=== PATIENT | female | born 1970 | race Caucasian/White ===

== ENCOUNTER 2020-02-01 16:35 | Outpatient (CLI) | payer OTHER, SELFPAY ==
--- NOTE | ~2020-02-01 | XR_ITS ---
XR shoulder RT min 2V 02/01/2020 17:10 INDICATION: Right shoulder pain PROCEDURE: 4 views right shoulder COMPARISON: No prior studies for comparison. FINDINGS: Fracture, dislocation or subluxation is not identified. The soft tissues appear within norm al limits. No foreign bodies are identified. IMPRESSION: 1: NO ACUTE BONE OR JOINT ABNORMALITY IDENTIFIED. Reviewed, dictated and finalized at location A.
--- NOTE | ~2020-02-01 | XR_ITS ---
EXAMINATION: XR hip RT min 2V DATE: 02/01/2020 17:11 INDICATION: Nontraumatic right hip pain TECHNIQUE: Anteroposterior , frog leg and cross-table lateral views of the right hip were obtained. COMPARISON: None. FINDINGS: Alignment is normal. No fracture or suspected avascular necrosis. Right hip and sacroiliac joint spac es are normal. Soft tissues are unremarkable. IMPRESSION: 1. Negative right hip radiographs. Reviewed, dictated and finalized at location A.
== END 2020-02-01 16:36 | disposition home or self-care (01) ==
PROVIDERS: PCP Physician Assistant; Visit Provider Physician Assistant
DX: M25.551 Pain in right hip (principal)
CPT/HCPCS: 73030; 73502

== ENCOUNTER 2020-05-09 16:22 | Outpatient (CLI) | payer OTHER, SELFPAY ==
--- NOTE | ~2020-05-09 | MM_ITS ---
EXAMINATION: MM screening nathan BI w que HISTORY: Screening mammogram TECHNIQUE: Craniocaudal and mediolateral oblique 3-D tomosynthesis images were obtained and synthetic 2-D images were generated. CAD analysis was submitted and interpreted. COMPARISON: 11/25/2018, 11/23/2017, 11/19/2016, 11/15/2015 bilateral digital screening mammogram examinati ons BREAST PARENCHYMAL COMPOSITION: There are scattered areas of fibroglandular density. FINDINGS: Stable mild fibroglandular asymmetry since 11/15/2015. There is no evidence of suspicious mas s, calcification, or architectural distortion to suggest malignancy in either breast. There has been no suspicious interval change. IMPRESSION: 1. No mammographic evidence of malignancy. 2. Recommend routine screening mammography in one year. BI-RADS Category 1: Negative Reviewed, dictated and finalized at location A. TTER HAND
== END 2020-05-09 16:23 | disposition home or self-care (01) ==
LOC: ANHIMG 16:26
PROVIDERS: PCP Physician Assistant; Visit Provider Student in an Organized Health Care Education/Training Program
DX: Z12.31 Encounter for screening mammogram for malignant neoplasm of breast (principal)
CPT/HCPCS: 77063; 77067

== ENCOUNTER 2020-11-29 11:25 | Outpatient (CLI) | payer OTHER, SELFPAY ==
--- NOTE | ~2020-11-29 | XR_ITS ---
EXAMINATION: XR tibia fibula LT 2V INDICATION: Left leg pain TECHNIQUE: Two views of the left tibia and fibula are obtained on three radiographs. COMPARISON: None available FINDINGS: There is no fracture, dislocation, or subluxation. The bones, soft tissues, and joint space s are normal. IMPRESSION: 1. No acute osseous abnormality. Reviewed, dictated and finalized at location A.
== END 2020-11-29 11:26 | disposition home or self-care (01) ==
LOC: ANHIMG 11:28
PROVIDERS: PCP Physician Assistant; Visit Provider Physician Assistant
DX: S89.92XA Unspecified injury of left lower leg, initial encounter (principal); X58.XXXA Exposure to other specified factors, initial encounter
CPT/HCPCS: 73590

== ENCOUNTER 2021-01-15 07:40 | Outpatient (CLI) | payer OTHER, SELFPAY ==
--- NOTE | ~2021-01-15 | US_ITS ---
US right upper quadrant DATE: 01/15/2021 08:06 INDICATION: Elevated liver function tests TECHNIQUE: Real-time and color flow imaging and Doppler analysis COMPARISON: 06/06/2017 complete abdominal ultrasound examination, reported normal FINDINGS: The pancreatic tail is obscured and not evaluated. The pancreas appears unremarkable. No hepatic space-occupying mass lesion is evident. Normal hepatopedal portal venous flow direction. No gallstones or gallbladder wall thickening or pericholecystic abnormal fluid collection. The common bile duct measures 3.9 mm, normal. IMPRESSION: Pancreatic tail is obscured; otherwise unremarkable examination Reviewed, dictated and finalized at Location A. Reviewed, dictated and finalized at location A.
== END 2021-01-15 07:41 | disposition home or self-care (01) ==
PROVIDERS: PCP Physician Assistant; Visit Provider Internal Medicine
DX: R79.89 Other specified abnormal findings of blood chemistry (principal)
CPT/HCPCS: 76705

== ENCOUNTER 2021-05-30 01:32 | Day surgery (SDC) | payer OTHER, SELFPAY ==
[2021-05-21 15:39] VITALS: BMI 26.2
--- NOTE | 2021-05-29 16:51 | PM.HPGS ---
History of Present Illness History of Present Illness Consent: Risks, benefits, and alternatives have been discussed and questions answered. Patient agrees to proceed with procedure. Chief complaint: neoplasm screening Narrative: Charmaine Deal is a 51 year old female Referred for colon cancer screening. Review of Systems Review of Systems: All systems reviewed & are unremarkable except as noted in HPI and below PMFSH Past Medical History Medical History Acid reflux Anemia Arthritis Asthma Autoimmune disease Diabetes Genital herpes simplex High cholesterol IBS (irritable bowel syndrome) Neuroma Left foot, removed Plantar fasciitis, bilateral Plantar fascia release, bilateral Psoriatic arthritis Thyroid disease Surgical History Surgical History deliv NOS-unsp x3 H/O abdominoplasty H/O foot surgery H/O laparoscopy H/O: hysterectomy History of ankle surgery History of hip surgery S/P bilateral oophorectomy [place] teeth removed Family History Family History Sibling Hypertension Cerebrovascular accident Grandparent Hypertension Cerebrovascular accident Family history of coronary artery disease Diabetes mellitus Father Family history of diabetes mellitus in first degree relative Diabetes mellitus Other Family history of malignant neoplasm of breast in first degree relative Social History Social History Smoking status: Never smoker Second hand tobacco smoke exposure: No Alcohol intake: current Alcohol use details: socially Living arrangements: with family Spiritual care concerns: No Meds Home Medications and Allergies Home Medications Medication Instructions Recorded Confirmed Type atorvastatin 40 mg tablet 40 mg PO DAILY 05/11/19 05/30/21 History ezetimibe 10 mg tablet 10 mg PO DAILY 05/11/19 05/30/21 History levothyroxine 88 mcg tablet 88 mcg PO DAILY 05/11/19 05/30/21 History metformin 500 mg tablet 1,000 mg PO BID 05/11/19 05/30/21 History multivitamin 1 tablet PO DAILY 05/11/19 05/30/21 History dulaglutide [Trulicity] 1.5 mg SUBCUT WEEKLY 06/02/19 05/30/21 History albuterol sulfate 90 mcg/actuation 1 inhalation INHALATION Q4H PRN 10/28/19 05/30/21 Rx aerosol inhaler #8.5 gm celecoxib 200 mg capsule 200 mg PO DAILY 12/18/20 05/30/21 History gabapentin 100 mg capsule 100 mg PO DAILY 12/18/20 05/30/21 History pioglitazone 15 mg tablet 15 mg PO DAILY 12/18/20 05/30/21 History diltiazem HCl 30 mg PO DAILY 05/21/21 05/30/21 History golimumab [Simponi ARIA] 100 mg IV ONCE 05/21/21 05/30/21 History valacyclovir 500 mg PO Q12H PRN 05/21/21 05/30/21 History Allergies Allergy/AdvReac Type Severity Reaction Status Date / Time gluten Allergy Unknown GI UPSET, Verified 05/30/21 06:20 HIVES adhesive Allergy rash Verified 05/30/21 06:20 bacitracin Allergy Rash Verified 05/30/21 06:20 latex Allergy Rash Verified 05/30/21 06:20 Exam Const: General: alert Orientation/consciousness: patient oriented x3 Resp: Auscultation: clear to auscultation bilaterally Cardio: Rhythm: regular rhythm GI: GI Palp: Yes Soft to palpation and No Tenderness to palpation present (GI) Neuro: General: patient oriented x3 Assessment and Plan Assessment and plan (1) Colon cancer screening: Code(s): Z12.11 - Encounter for screening for malignant neoplasm of colon Status: Acute Assessment and Plan: Colonoscopy with possible biopsy or polypectomy or cautery or injection of substances.
[2021-05-30 06:21] VITALS: BP 132/84; PULSE 102; RESP 18; TEMP 36.6; O2SAT 95; BMI 24.5
[2021-05-30] MEDS: LACTATED RINGERS 1,000 ML 150 ML IV CONT (06:25)
[2021-05-30 06:35] LABS: Glucose Point of Care 176 mg/dl (65-105)
--- NOTE | 2021-05-30 06:53 | WPDANESEPPF ---
Anes - Initial Pre Proc Eval Procedure: Operation Date: 05/30/21 07:30 Proposed Procedures p Screening Colonoscopy - Melvin Juarez MD Date/Time: 05/30/21 06:53 Surgeon: Melvin Juarez MD Pre Op Diagnosis: neoplasm screening Patient Data Age: 51 Gender: F Height: 1.6 m Weight: 62.8 kg Last Vital Signs Temp 36.6 C 05/30/21 06:21 Pulse 102 H 05/30/21 06:21 Resp 18 05/30/21 06:21 BP 132/84 05/30/21 06:21 Pulse Ox 95 05/30/21 06:21 Allergies Allergy/AdvReac Type Severity Reaction Status Date / Time gluten Allergy Unknown GI UPSET, Verified 05/30/21 06:20 HIVES adhesive Allergy rash Verified 05/30/21 06:20 bacitracin Allergy Rash Verified 05/30/21 06:20 latex Allergy Rash Verified 05/30/21 06:20 Home Medications Medication Instructions Recorded Confirmed Type atorvastatin 40 mg tablet 40 mg PO DAILY 05/11/19 05/30/21 History ezetimibe 10 mg tablet 10 mg PO DAILY 05/11/19 05/30/21 History levothyroxine 88 mcg tablet 88 mcg PO DAILY 05/11/19 05/30/21 History metformin 500 mg tablet 1,000 mg PO BID 05/11/19 05/30/21 History multivitamin 1 tablet PO DAILY 05/11/19 05/30/21 History dulaglutide [Trulicity] 1.5 mg SUBCUT WEEKLY 06/02/19 05/30/21 History albuterol sulfate 90 mcg/actuation 1 inhalation INHALATION Q4H PRN 10/28/19 05/30/21 Rx aerosol inhaler #8.5 gm celecoxib 200 mg capsule 200 mg PO DAILY 12/18/20 05/30/21 History gabapentin 100 mg capsule 100 mg PO DAILY 12/18/20 05/30/21 History pioglitazone 15 mg tablet 15 mg PO DAILY 12/18/20 05/30/21 History diltiazem HCl 30 mg PO DAILY 05/21/21 05/30/21 History golimumab [Simponi ARIA] 100 mg IV ONCE 05/21/21 05/30/21 History valacyclovir 500 mg PO Q12H PRN 05/21/21 05/30/21 History Laboratory Tests 05/30/21 06:33 POC Capillary Glucose 176 mg/dl H mg/dl (65-105) Patient hx anesthesia problems: none Family hx anesthesia problems: none Results Review: All pre-operative results and documents have been reviewed as part of the pre-operative evaluation. [facility] Past Medical History Medical History Acid reflux Anemia Arthritis Asthma Autoimmune disease Diabetes Genital herpes simplex High cholesterol IBS (irritable bowel syndrome) Neuroma Left foot, removed Plantar fasciitis, bilateral Plantar fascia release, bilateral Psoriatic arthritis Thyroid disease Surgical History Surgical History deliv NOS-unsp x3 H/O abdominoplasty H/O foot surgery H/O laparoscopy H/O: hysterectomy History of ankle surgery History of hip surgery S/P bilateral oophorectomy [place] teeth removed Family History Family History Sibling Hypertension Cerebrovascular accident Grandparent Hypertension Cerebrovascular accident Family history of coronary artery disease Diabetes mellitus Father Family history of diabetes mellitus in first degree relative Diabetes mellitus Other Family history of malignant neoplasm of breast in first degree relative Social History Social History Smoking status: Never smoker Second hand tobacco smoke exposure: No Alcohol intake: current Alcohol use details: socially Living arrangements: with family Spiritual care concerns: No Anes - Eval Final PreProcedure Day of Procedure 05/30/21 06:53 Patient weight: normal Heart: regular rate and rhythm Lungs: clear to auscultation Airway: Mallampati scale class 1 Neurological: alert and oriented Last oral intake: >/= 8 hours ASA classification: III Emergent: no Anesthetic plan: proceed Anesthesia type and monitoring: general GIVS and standard monitoring Results Review: All pre-operative results and documents have been reviewed as part of the pre-operative evaluation. Informed Consent: The patie
[2021-05-30 07:47] VITALS: BP 100/58; PULSE 84; RESP 19; O2SAT 96
[2021-05-30 07:57] VITALS: BP 128/73; PULSE 81; RESP 17; O2SAT 100
[2021-05-30 08:07] VITALS: BP 105/74; PULSE 83; RESP 24; O2SAT 100
== END 2021-05-30 08:27 | disposition home or self-care (01) ==
PROVIDERS: PCP Physician Assistant; Visit Provider Internal Medicine Gastroenterology
PROC: 0DJD8ZZ Inspection of Lower Intestinal Tract, Via Natural or Artificial Opening Endoscopic (ICD-10-PCS; CPT 45378; principal; 2021-05-30 07:30)
DX: Z12.11 Encounter for screening for malignant neoplasm of colon (principal); K21.9 Gastro-esophageal reflux disease without esophagitis; K58.9 Irritable bowel syndrome, unspecified; J45.909 Unspecified asthma, uncomplicated; E11.9 Type 2 diabetes mellitus without complications; E78.00 Pure hypercholesterolemia, unspecified; L40.50 Arthropathic psoriasis, unspecified
CPT/HCPCS: 45378; 82948; J2001; J2704; J7120

== ENCOUNTER 2021-10-16 15:30 | Outpatient (CLI) | payer OTHER, SELFPAY ==
--- NOTE | ~2021-10-16 | MM_ITS ---
EXAMINATION: MM screening nathan BI w que HISTORY: Screening TECHNIQUE: Craniocaudal and mediolateral oblique 3-D tomosynthesis images were obtained and synthetic 2-D images were generated. CAD analysis was submitted and interpreted. COMPARISON: Comparison to multiple prior studies sequentially, with oldest reviewed study dated 08/25. BREAST PARENCHYMAL COMPOSITION: There are scattered areas of fibroglandular density. FINDINGS: There is no evidence of suspicious mass, calcification, or architectural distortion to sugg est malignancy in either breast. There has been no suspicious interval change. IMPRESSION: 1. No mammographic evidence of malignancy. 2. Recommend routine screening mammography in one year. BI-RADS Category 1: Negative Reviewed, dictated and finalized at location A.
== END 2021-10-16 15:31 | disposition home or self-care (01) ==
LOC: ANHIMG 15:31
PROVIDERS: PCP Physician Assistant; Visit Provider Student in an Organized Health Care Education/Training Program
DX: Z12.31 Encounter for screening mammogram for malignant neoplasm of breast (principal)
CPT/HCPCS: 77063; 77067

== ENCOUNTER → 2022-11-13 08:08 | Outpatient (CLI) | payer BC, SELFPAY ==
--- NOTE | ~2022-11-13 | MR_ITS ---
MRI of the cervical spine Clinical History: Chronic neck pain Technique: Axial T2-weighted and gradient images, and sagittal T1-weighted, T2-weighted, and STIR liam ges were acquired. Findings: There is no fracture or subluxation of the cervical spine. Vertebral bodies maintain normal height and alignment. No bone marrow signal abnormality seen. At C2-C3, there is no disc bulge or herniation. No spinal canal stenosis, cord compression, or neural foraminal narrowing. At C3-C4, there is no disc bulge or herniation. No spinal canal stenosis, cord compression, or neural foraminal narrowing. At C4-C5, there is minimal disc bulge. No spinal canal stenosis, cord compression, or neural foramina l narrowing. At C5-C6, there is mild disc bulge. No spinal canal stenosis, cord compression, or neural foraminal n arrowing. At C6-C7, there is no disc bulge or herniation. No spinal canal stenosis, cord compression, or neural foraminal narrowing. No abnormal signal seen in the spinal cord. Paravertebral soft tissues are unremarkable. Impression: Minimal degenerative change, as above. Reviewed, dictated and finalized at location M. Impression: Minimal degenerative change, as above.
== END ==
PROVIDERS: PCP Physician Assistant; Visit Provider Internal Medicine
DX: G47.01 Insomnia due to medical condition (principal); L40.59 Other psoriatic arthropathy; M77.9 Enthesopathy, unspecified; K21.9 Gastro-esophageal reflux disease without esophagitis
CPT/HCPCS: 72141

== ENCOUNTER 2022-12-02 09:23 | Outpatient (CLI) | payer BC, SELFPAY ==
--- NOTE | ~2022-12-02 | MM_ITS ---
EXAMINATION: MM screening [facility] BI w que HISTORY: Screening mammogram TECHNIQUE: Craniocaudal and mediolateral oblique 3-D tomosynthesis images were obtained and synthetic 2-D images were generated. CAD analysis was submitted and interpreted. COMPARISON: Serial screening mammogram examinations dating back to 11/25/2018 BREAST PARENCHYMAL COMPOSITION: There are scattered areas of fibroglandular density. FINDINGS: Occasional benign belly arterial calcifications. There is no evidence of suspicious mass, c alcification, or architectural distortion to suggest malignancy in either breast. There has been no s uspicious interval change. IMPRESSION: 1. No mammographic evidence of malignancy. 2. Recommend routine screening mammography in one year. BI-RADS Category 2: Benign finding(s). Reviewed, dictated and finalized at location A.
--- NOTE | ~2022-12-02 | DEXA_ITS ---
Bone Density Report Name: SCAR CHANDLER Age: 52 Sex: Female Ethnicity: White Date of : 1970 Indication: postmenopausal; screening for osteoporosis; prior fracture; hysterectomy; Referring Provider: TALNO POZO Study: Bone densitometry was performed. Exam Date: December 02, 2022 Accession number: [id number] Bone Density: Region BMD T-score Z-score Classification AP Spine(L1-L4) 0.813 -2.1 -1.2 Osteopenia Femoral Neck (Left) 0.667 -1.6 -0.7 Osteopenia Total Hip (Left) 0.816 -1.0 -0.5 Normal Femoral Neck (Right) 0.628 -2.0 -1.1 Osteopenia Total Hip (Right) 0.837 -0.9 -0.3 Normal Total Hip Mean 0.827 -1.0 -0.4 Normal World Health Organization criteria for BMD impression classify patients as: Normal (T-score at or above -1.0), Osteopenia (T-score between -1.0 and -2.5), or Osteoporosis (T-score at or below -2.5). 10-year Fracture Risk(1): Major Osteoporotic Fracture 12% Hip Fracture 1.5% Reported Risk Factors: [place] (), Neck BMD=0.628, BMI=25.9, previous fracture (1) FRAX(R) Version 3.08. Fracture probability calculated for an untreated patient. Fracture probability may be lower if the patient has received treatment. Clinical Information Provided by Patient: Has had a low trauma fracture Has the following medical conditions: Hysterectomy, psoratic arthritis Patient maximum height was 63 Menopause Age: 40 No regular weight bearing exercise Drinks caffeinated beverages Onset of menses at age 10 Number of children 3 Impression: The patient has low bone mass, based on the Total Spine T-score. The patient has an estimated ten-year risk of hip fracture of 1.5% and an estimated ten-year risk of major fracture of 12%, based on the WHO FRAX algorithm. The patient has risk factors, including: previous fracture. Discussion: BONE DENSITY IS LOW AT ONE OR MORE SKELETAL SITES. This patient's lowest T-score is low at one or more skeletal sites. It meets the World Health Organization's (WHO) criteria for ?low bone mass? (T-score between -1.0 and -2.5). The patient's 10-year risk of fracture as calculated by FRAX is less than the threshold where pharmacological therapy is recommended by the National Osteoporosis Foundation (NOF). However, all treatment decisions require clinical judgment and consideration of individual patient factors, including patient preferences, comorbidities, previous drug use, risk factors not captured in the FRAX model (e.g., frailty, falls, vitamin D deficiency, increased bone turnover, interval significant decline in bone density) and possible under or overestimation of fracture risk by FRAX. The patient should follow a healthful lifestyle (good nutrition with adequate calcium and vitamin D, and appropriate weight-bearing exercise). Follow-Up: C
== END 2022-12-02 09:24 | disposition home or self-care (01) ==
PROVIDERS: PCP Physician Assistant; Visit Provider Registered Nurse
DX: Z12.31 Encounter for screening mammogram for malignant neoplasm of breast (principal); E89.40 Asymptomatic postprocedural ovarian failure; Z86.2 Personal history of diseases of the blood and blood-forming organs and certain disorders involving the immune mechanism; Z90.710 Acquired absence of both cervix and uterus; M85.88 Other specified disorders of bone density and structure, other site; M85.852 Other specified disorders of bone density and structure, left thigh; M85.851 Other specified disorders of bone density and structure, right thigh
CPT/HCPCS: 77063; 77067; 77080

== ENCOUNTER 2022-12-24 10:00 | Outpatient (RCR) | payer BC, SELFPAY ==
--- NOTE | 2022-10-08 11:29 | PTOPEVAL1 ---
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 Is now using an estrogen cream as well. Has had pain for at least 6 months, unsure cause. Highest pain 8/10 and lowest 0/10. Also had significant pain with a pelvic exam/pap smear. Also states she has a Bartholin's cyst. Has had pain with tampons in the past but not as significant. Hysterectomy in 2010, then ovaries removed 4 years ago. States she had a long recovery and a lot of scar tissue after her hysterectomy. Urinates 3-7 times a day, very infrequently 1 time at night. Urine leakage maybe once a month. Denies pain with urination. Can hold urine unlimited amounts of time. Sometimes has been noticing trouble initiating her urine stream. BM 2-5 times a day, diagnosed with Celiac and other GI issues. No pain. Pt has been 3 times, 3 deliveries- all without other complications. Returns to [place] in November. Patient goal : get rid of pain. States she has stress due to avoiding intercourse and other situations that would cause pain. Reported Pain Level Pain Score 0: Self Report Plan of Care Interventions Electrical Stimulation,Hot Pack/Cold Pack,Manual Therapy,Neuro Re-education,Patient/Caregiver Education,Therapeutic Activities,Therapeutic Exercise,Self-Care/Home Management PT Services Indicated Yes Treatment Frequency and 1 time a week for 6 weeks Duration These treatments will address the objective and functional deficits as defined above. The patient will be advanced safely and appropriately in order for the patient to progress towards his/her prior level of function. Additional exercises will be introduced and as well as a comprehensive home exercise program upon discharge, if needed, ?to ensure carryover of functional gains achieved in the clinic. This treatment plan has been reviewed and agreement upon by the patient.
--- NOTE | 2022-11-20 09:25 | PTOPPROG ---
Assessment and note entered by Carlota Davis DPT Evaluation Information Assessment Status Progress Subjective Information Pt reports therapy is definitely helping . Highest pain 5/10 and lowest 0/10. Still has to consciously relax with intercourse. Able to initiate urine stream with less difficulty. Sees this week, feels more therapy would continue to help. Assessment PT Clinical Summary The patient has made good progress in therapy and reports overall decreased pain. She demos improved strength and decreased pain on pelvic exam. She will continue to benefit from therapy to further address pain and allow for full tolerance of exam, pap smear, intercourse, etc. Plan of Care Interventions Electrical Stimulation,Hot Pack/Cold Pack,Manual Therapy,Neuro Re-education,Patient/Caregiver Education,Therapeutic Activities,Therapeutic Exercise PT Services Indicated Yes Treatment Frequency and 1 time a week for 4 weeks Duration These treatments will address the objective and functional deficits as defined above. The patient will be advanced safely and appropriately in order for the patient to progress towards his/her prior level of function. Additional exercises will be introduced and as well as a comprehensive home exercise program upon discharge, if needed, ?to ensure carryover of functional gains achieved in the clinic. This treatment plan has been reviewed and agreement upon by the patient.
--- NOTE | 2022-12-24 10:27 | PTOPPROG ---
Assessment and note entered by Carlota Davis DPJessica Evaluation Information Assessment Status Progress Subjective Information Pt reports she has had very minimal pain in the last week or two, less than 1/10 on the pain scale . Has been able to complete intercourse without issue. Assessment PT Clinical Summary The patient has continued to make good progress in therapy and reports greatly decreased pain overall. She reports mild pain, 1/10, on exam today and displays mild increased pelvic floor muscle tone. Due to her progress, plan to reassess patient in 1 month to address pain and allow for full, pain free tolerance of pelvic exam, pap smear, etc. Plan of Care Interventions Electrical Stimulation,Hot Pack/Cold Pack,Manual Therapy,Neuro Re-education,Patient/Caregiver Education,Therapeutic Activities,Therapeutic Exercise PT Services Indicated Yes Treatment Frequency and 1 visit in 1 month Duration These treatments will address the objective and functional deficits as defined above. The patient will be advanced safely and appropriately in order for the patient to progress towards his/her prior level of function. Additional exercises will be introduced and as well as a comprehensive home exercise program upon discharge, if needed, ?to ensure carryover of functional gains achieved in the clinic. This treatment plan has been reviewed and agreement upon by the patient.
--- NOTE | 2022-12-30 10:00 | PCPTNOTE ---
Called patient to cancel her next visit scheduled on 01/23/23. She has attended physical therapy at 2 different locations this year and has run out of visits.
--- NOTE | 2023-01-01 08:08 | PTOPDC ---
Assessment and note entered by Carlota Davis DPT Evaluation Information Assessment Status Discharge - Pt Not Present Subjective Information Assessment PT Clinical Summary Discharge, patient has reached allowed therapy visits per insurance for the year. Plan of Care PT Services Indicated No
== END 2023-01-02 15:21 | disposition home or self-care (01) ==
LOC: ANHGOSHPT 10:00
PROVIDERS: PCP Physician Assistant; Visit Provider Registered Nurse
DX: N94.10 Unspecified dyspareunia (principal)
CPT/HCPCS: 97110; 97112; 97140; 97161; 97530

== ENCOUNTER → 2023-07-10 15:12 | Outpatient (CLI) | payer BC, SELFPAY ==
--- NOTE | ~2023-07-10 | XR_ITS ---
XR lumbar spine 2-3V DATE: 07/10/2023 15:31 INDICATION: Polyarticular psoriatic arthritis. History of bulging disc. TECHNIQUE: AP, lateral, oblique views COMPARISON: 12/24/2010 lumbar spine FINDINGS: There is minimal levoscoliosis of the lumbar spine. Lower thoracic and lumbar pedicles are intact. No fracture or bone destruction or spondylolisthesis i s detected. Lumbar and lumbosacral interspaces appear well preserved. The sacroiliac joints are intact. IMPRESSION: Minimal levoscoliosis; otherwise negative Reviewed, dictated and finalized at location B. 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
== END ==
PROVIDERS: PCP Physician Assistant; Visit Provider Internal Medicine
DX: G47.01 Insomnia due to medical condition (principal); L40.59 Other psoriatic arthropathy; M77.9 Enthesopathy, unspecified; K21.9 Gastro-esophageal reflux disease without esophagitis
CPT/HCPCS: 72100

== ENCOUNTER 2023-10-16 09:53 | Outpatient (CLI) | payer BC, SELFPAY ==
--- NOTE | ~2023-10-16 | US_ITS ---
EXAMINATION: US soft tissue head and neck DATE: 10/16/2023 10:59 INDICATION: Enlarged lymph node. TECHNIQUE: Multiple grayscale and Doppler ultrasound images of the head and neck were obtained. COMPARISON: None FINDINGS: There are normal lymph nodes in left neck in the patient's area of concern. IMPRESSION: 1. No abnormal neck mass or lymphadenopathy. Reviewed, dictated and finalized at location A.
== END 2023-10-16 09:54 ==
PROVIDERS: PCP Internal Medicine; Visit Provider Physician Assistant
DX: R59.0 Localized enlarged lymph nodes (principal)
CPT/HCPCS: 76536

== ENCOUNTER 2024-03-07 07:11 | Outpatient (CLI) | payer BC, SELFPAY ==
--- NOTE | ~2024-03-07 | CT_ITS ---
CT soft tissue neck w con Ordering provider: Jordon Nair, History: 53 years Female with . MASS OF NECK . Comparison: None. Technique: CT soft tissues neck was performed with contrast. . Automated exposure control and iterat todd reconstruction technique were employed. The dose-length product was 333.54 mGy-cm. 75 mL Omnipaqu e 350 was given IV. Findings: LOWER HEAD: The visualized brain parenchyma, optic globes/orbits and mastoids are normal. The visua lized paranasal sinuses are well aerated. Collateral vessels are seen in the posterior aspect of the neck near to the skull base. SALIVARY GLANDS: Normal. THYROID: Normal. Small in size. SUPRAHYOID DEEP SPACES: Right parapharyngeal lymph node is seen which measures 1 cm. Lymph nodes are also seen in the left parapharyngeal spaces and posterior triangle measuring 1 cm and 1 cm. Right pos terior triangle lymph node is seen measuring 1.2 cm. CAROTID ARTERIES: Normal. JUGULAR VEINS: Normal. TONSILS: Normal. ORAL CAVITY: Partially obscured by dental amalgam but normal as visualized. PHARYNX, LARYNX AND TRACHEA: Patent and normal. No definite prevertebral soft tissue mass is seen. SUPERFICIAL SOFT TISSUES: Normal. Lymph nodes seen in the right jugular chain measuring 0.9 cm. THORACIC INLET/VISUALIZED UPPER CHEST: Normal. SKELETAL: Normal. IMPRESSION: 1. Borderline lymphadenopathy in the parapharyngeal and posterior triangle areas. 2. No definite mass is seen. Follow-up advised. 3. Collateral vessels seen in the posterior neck near to the skull base. Reviewed, dictated and finalized at location A. IMPRESSION: 1. Borderline lymphadenopathy in the parapharyngeal and posterior triangle are as. 2. No definite mass is seen. Follow-up advised. 3. Collateral vessels seen in the posterior neck near to the skull base.
[2024-03-07 07:39] LABS: Estimated Glomerular Filt Rate > 60
== END 2024-03-07 07:12 | disposition home or self-care (01) ==
PROVIDERS: PCP Physician Assistant; Visit Provider Otolaryngology
DX: R22.1 Localized swelling, mass and lump, neck (principal)
CPT/HCPCS: 70491; Q9967

== ENCOUNTER 2024-04-26 09:50 | Outpatient (CLI) | payer BC, SELFPAY ==
--- NOTE | ~2024-04-26 | CT_ITS ---
CTA chest PE protocol Ordering provider: Courtney HopkinsLINDA History: 54 years Female with . DYSPNEA . Comparison: None. Technique: CT angiogram chest was performed following timed intravenous injection of contrast. Thin s lice axial images and reformatted coronal images were obtained. Three dimensional reformatted images of the chest were also obtained using a [employer] workstation. . Automated exposure control and iterati ve reconstruction technique were employed. The dose-length product was 144.80 mGy-cm. 100 mL Omnipaqu e 350 was given IV. Findings: PULMONARY ARTERIES: No pulmonary embolus. VISUALIZED THORACIC INLET: Normal. MEDIASTINUM: Aorta/coronary arteries: Mild atheromatous disease. Heart/other: The heart is not enlarged. Lymph nodes: No mediastinal or hilar adenopathy. LUNGS: No pulmonary nodules or masses. No infiltrates or effusions. No pneumothorax. VISUALIZED UPPER ABDOMEN: Slightly thickened wall of the stomach. Clinical correlation advised.Otherw ise, the visualized upper abdomen is normal. MUSCULOSKELETAL: Soft tissues: The superficial soft tissues are normal. Bones: Age appropriate degenerative changes of the spine. IMPRESSION: 1. No pulmonary embolism. 2. No acute cardiopulmonary pathology. Reviewed, dictated and finalized at location A. 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
[2024-04-26 10:28] LABS: Estimated Glomerular Filt Rate > 60
== END 2024-04-26 09:51 | disposition home or self-care (01) ==
PROVIDERS: PCP Physician Assistant; Visit Provider Physician Assistant
DX: R06.00 Dyspnea, unspecified (principal)
CPT/HCPCS: 71275; Q9967

== ENCOUNTER 2024-05-06 10:51 | Outpatient (CLI) | payer BC, SELFPAY ==
--- NOTE | ~2024-05-06 | MM_ITS ---
EXAMINATION: MM screening nathan BI w que HISTORY: Screening TECHNIQUE: Craniocaudal and mediolateral oblique 3-D tomosynthesis images were obtained and synthetic 2-D images were generated. CAD analysis was submitted and interpreted. COMPARISON: Comparison to multiple prior studies sequentially, with oldest reviewed study dated 11/19. BREAST PARENCHYMAL COMPOSITION: Dense: The breasts are heterogeneously dense, which may obscure small masses FINDINGS: There is no evidence of suspicious mass, calcification, or architectural distortion to sugg est malignancy in either breast. There has been no suspicious interval change. IMPRESSION: 1. No mammographic evidence of malignancy. 2. Recommend routine screening mammography in one year. BI-RADS Category 1: Negative Reviewed, dictated and finalized at location [] RWORKS CHIEF ENGINEER
== END 2024-05-06 10:52 | disposition home or self-care (01) ==
LOC: ANHIMG 10:54
PROVIDERS: PCP Physician Assistant; Visit Provider Nurse Practitioner Family
DX: Z12.31 Encounter for screening mammogram for malignant neoplasm of breast (principal)
CPT/HCPCS: 77063; 77067

== ENCOUNTER 2024-05-13 07:34 | Outpatient (CLI) | payer BC, SELFPAY ==
--- NOTE | ~2024-05-13 | MR_ITS ---
EXAMINATION: MR brain/brain stem wo/w con DATE: 05/13/2024 08:30 INDICATION: Dizziness. TECHNIQUE: Magnetic resonance imaging (MRI) of the brain and brainstem was performed without and with 10 mL MultiHance intravenous contrast. COMPARISON: Brain MRI 07/28/2013 FINDINGS: There is no intracranial hemorrhage, acute infarction, or abnormal intracranial mass lesion . The ventricles are normal in size. The paranasal sinuses are clear. The orbits are normal. The mast oid air cells are normal. IMPRESSION: 1. Normal brain. Reviewed, dictated and finalized at location A. 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 Normal brain.
== END 2024-05-13 07:35 | disposition home or self-care (01) ==
PROVIDERS: PCP Physician Assistant; Visit Provider Physician Assistant
DX: R42 Dizziness and giddiness (principal)
CPT/HCPCS: 70553; A9577

== ENCOUNTER 2024-07-26 08:38 | Outpatient (CLI) | payer BC, SELFPAY ==
--- NOTE | ~2024-07-26 | MR_ITS ---
EXAMINATION: MR elbow RT wo con DATE: 07/26/2024 09:15 INDICATION: Lateral epicondylitis TECHNIQUE: Magnetic resonance imaging (MRI) of the right elbow was performed without intravenous cont rast. Sequences included coronal, axial, and sagittal PD-weighted FS FSE and coronal, axial, and sagi ttal PD-weighted FSE. COMPARISON: None FINDINGS: Osseous/other: Normal alignment. Normal marrow signal with no marrow edema, fracture, osteochondral lesion or abnor mal marrow replacing process. 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 Tendons: Triceps and brachialis tendons are normal. Mild tendinopathy without tear at the distalmost biceps br achii tendon. Common flexor tendon wad is normal. Mild tendinopathy without discrete tear of the com mon extensor tendon wad with mild surrounding soft tissue edema consistent with mild lateral epicondy litis. Ligaments: The medial and lateral collateral ligament complexes are normal. Cubital tunnel: Cubital tunnel is unremarkable with normal signal and caliber of the ulnar nerve. No impinging lesion s identified at the cubital tunnel. Fluid: Physiologic amount of fluid the elbow joint. IMPRESSION: 1. Mild lateral epicondylitis with mild tendinopathy without discrete tear at the insertion of the co mmon extensor tendon wad. 2. Mild tendinopathy without tear at the insertion of the biceps brachii tendon. 3. Mild osteoarthritis at the right elbow. Reviewed, dictated and finalized at location A. TRIMMER IMPRESSION: 1. Mild lateral epicondylitis with mild tendinopathy without discrete tear at t he insertion of the common extensor tendon wad. 2. Mild tendinopathy without tear at the insertion of the biceps brachii tendon . 3. Mild osteoarthritis at the right elbow.
== END 2024-07-26 08:39 | disposition home or self-care (01) ==
PROVIDERS: PCP Physician Assistant; Visit Provider Physician Assistant
DX: M77.11 Lateral epicondylitis, right elbow (principal); G56.21 Lesion of ulnar nerve, right upper limb; M19.021 Primary osteoarthritis, right elbow
CPT/HCPCS: 73221

== ENCOUNTER 2025-01-10 08:36 | Outpatient (CLI) | payer BC, SELFPAY ==
--- NOTE | ~2025-01-10 | DEXA_ITS ---
Bone Density Report Name: SCAR CHANDLER Age: 54 Sex: Female Ethnicity: White Date of : 1970 Indication: osteopenia; prior fracture; asthma or emphysema; rheumatoid arthritis; Referring Provider: ANSLEY NGUYEN Study: Bone densitometry was performed. Exam Date: January 10, 2025 Accession number: [id number] Bone Density: Region BMD T-score Z-score Classification AP Spine(L1-L4) 0.756 -2.6 -1.6 Osteoporosis Femoral Neck (Left) 0.635 -1.9 -0.9 Osteopenia Total Hip (Left) 0.710 -1.9 -1.2 Osteopenia Femoral Neck (Right) 0.570 -2.5 -1.5 Osteoporosis Total Hip (Right) 0.736 -1.7 -1.0 Osteopenia Total Hip Mean 0.723 -1.8 -1.1 Osteopenia World Health Organization criteria for BMD impression classify patients as: Normal (T-score at or above -1.0), Osteopenia (T-score between -1.0 and -2.5), or Osteoporosis (T-score at or below -2.5). 10-year Fracture Risk: FRAX not reported because: Some T-score for Spine Total or Hip Total or Femoral Neck at or below -2.5 Previous Exams: -- Region Exam Age BMD T-score BMD Change BMD Change Date g/cm2 vs Baseline vs Previous -- AP Spine (L1-L4) 01/10/2025 54 0.756 -2.6 -7.1%* -7.1%* 12/02/2022 52 0.813 -2.1 Total Hip(Left) 01/10/2025 54 0.710 -1.9 -13.1%* -13.1%* 12/02/2022 52 0.816 -1.0 Total Hip(Right) 01/10/2025 54 0.736 -1.7 -12.1%* -12.1%* 12/02/2022 52 0.837 -0.9 -- *Denotes significance at 95% confidence level, LSC for AP Spine = 0.022 g/cm2, LSC for Total Hip = 0.027 g/cm2 Clinical Information Provided by Patient: Has had a low trauma fracture Has rheumatoid arthritis Has used the following medications: Vitamin D, Calcium Has the following medical conditions: Asthma or Emphysema Patient maximum height was 63 Menopause Age: 40 No regular weight bearing exercise Does not regularly consume dairy products Drinks caffeinated beverages Onset of menses at age 10 Number of children 3 Missed period for more than 6 months in a row Impression: The patient has established osteoporosis, based on the Total Spine T-score and the existence of a prior fracture. The patient has risk factors, including: previous fracture. The BMD for the AP Spine (L1-L4) decreased, changing by -7.1% since the last DXA exam. The BMD for the Total Hip(Left) decreased, changing by -13.1% since the last DXA exam. The BMD for the Total Hip(Right) decreased, changing by -12.1% since the last DXA exam. Discussion: HIGH RISK OF FRACTURE. BONE DENSITY IS UNDESIRABLY LOW AT ONE OR MORE SKELETAL SITES, CONSISTENT WITH POSTMENOPAUSAL OSTEOPOROSIS. This patient's lowest T-score, in a patient who has previously fractured, meets the World Health Organization's (WHO) criteria for severe osteoporosis. In untreated patients, the risk of osteoporotic fracture increases approximately two-fold for each 1.0 SD decrease in T-score. Low bone density is not the only risk factor for fracture; also consider factors such as patient's age, frailty or poor health, risk of falling, risk of injury, previous osteoporotic fracture, family history of osteoporosis, cigarette smoking, low body weight, etc. Not everyone with low bone mineral density has osteoporosis; osteomalacia and other metabolic bone disorders should also be considered. Patients who have osteoporosis should be evaluated for specific diseases and conditions (secondary causes) that may cause or contribute to bone loss. The [place] [employer] Endocrinologists (AACE) and National Osteoporosis Foundation (NOF) recommend pharmacologic intervention for all postmenopausal women whose T-score is in this range. The patient should follow a healthful lifestyle (good nutrition with adequate calcium and vitamin D, and appropriate weight-bearing exercise). Follow-Up: Consider a repeat BMD and Vertebral Fracture Assessment (VFA) exam in 2 years or sooner if medically necessary, to reassess this patient's status. Reported by: DIANE on 01/10/2025 9:03:00 AM. Reviewed, dictated and finalized at location A.
== END 2025-01-10 08:37 | disposition home or self-care (01) ==
LOC: MICIMG 08:37
PROVIDERS: PCP Physician Assistant; Visit Provider Obstetrics & Gynecology
DX: Z78.0 Asymptomatic menopausal state (principal); M81.0 Age-related osteoporosis without current pathological fracture; M85.852 Other specified disorders of bone density and structure, left thigh; M85.851 Other specified disorders of bone density and structure, right thigh
CPT/HCPCS: 77080

== ENCOUNTER 2025-05-19 15:27 | Outpatient (CLI) | payer BC, SELFPAY ==
--- NOTE | ~2025-05-19 | MM_ITS ---
EXAMINATION: MM screening nathan BI w que HISTORY: Screening. TECHNIQUE: Craniocaudal and mediolateral oblique 3-D tomosynthesis images were obtained and synthetic 2-D images were generated. CAD analysis was submitted and interpreted. COMPARISON: 2023, 2022, and 2021. BREAST PARENCHYMAL COMPOSITION: Dense: The breasts are heterogeneously dense FINDINGS: No suspicious masses are seen. There are no suspicious calcifications. No unexplained architectural distortion is seen. There are no skin or nipple abnormalities identified. There is no adenopathy seen on the images submitted. IMPRESSION: No mammographic evidence to suggest malignancy is seen. The patient may return to screening mammography as per ACR guidelines. BI-RADS 1 - Negative. Reviewed, dictated and finalized at location C. 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
== END 2025-05-19 15:28 | disposition home or self-care (01) ==
LOC: ANHFOHIMG 15:30
PROVIDERS: PCP Physician Assistant; Visit Provider Nurse Practitioner Family
DX: Z12.31 Encounter for screening mammogram for malignant neoplasm of breast (principal)
CPT/HCPCS: 77063; 77067